=== PATIENT | male | born 1990 | race American Indian/Alaskan Native ===

== ENCOUNTER 2016-08-19 01:12 | Emergency (ER) | payer OTHER ==
[2016-08-19 01:31] VITALS: BP 126/75; PULSE 71; RESP 18; TEMP 97.7; O2SAT 99
--- NOTE | 2016-08-19 01:42 | C.PDOC ---
Time Seen by Provider: 08/19/16 01:34 Chief Complaint (Nursing): Abnormal Skin Integrity Past Medical History Vital Signs: Last Vital Signs Temp 97.7 F 08/19/16 01:29 Pulse 71 08/19/16 01:29 Resp 18 08/19/16 01:29 BP 126/75 08/19/16 01:29 Pulse Ox 99 08/19/16 01:29 - Social History Hx Tobacco Use: Yes Hx Alcohol Use: Yes Hx Substance Use: Yes - Immunization History Hx Tetanus Toxoid Vaccination: No Hx Influenza Vaccination: No Hx Pneumococcal Vaccination: No ED Course And Treatment O2 Sat by Pulse Oximetry: 99 Disposition Counseled Patient/Family Regarding: Studies Performed, Diagnosis, Need For Followup - Disposition Referrals: [facility] [Outside] Disposition: HOME/ ROUTINE Disposition Time: 01:37 Condition: FAIR Additional Instructions: Must follow up with workman's comp doctor. Instructions: Abrasion (ED) - Clinical Impression Clinical Impression: Abrasion
--- NOTE | 2016-08-19 01:44 | C.PDOC ---
History Of Present Illness Patient presents to ED requesting tetanus shot because of cut on forehead 1cm above ridge of nose caused by hand colby [employer] that happened at work. Patient denies loss of conscious, blurred vision, fever, chills, nausea/vomiting or diarrhea. Time Seen by Provider: 08/19/16 01:34 Chief Complaint (Nursing): Abnormal Skin Integrity History Per: Patient History/Exam Limitations: no limitations Onset/Duration Of Symptoms: Hrs Current Symptoms Are (Timing): Still Present Location Of Injury: Anterior: Head (Forehead cut caused by hand colby) Severity: Mild Pain Scale Rating Of: 3 Recent travel outside of the [place]: No Additional History Per: Patient Past Medical History Reviewed: Historical Data, Nursing Documentation, Vital Signs Vital Signs: Last Vital Signs Temp 97.7 F 08/19/16 01:29 Pulse 71 08/19/16 01:29 Resp 18 08/19/16 01:29 BP 126/75 08/19/16 01:29 Pulse Ox 99 08/19/16 01:52 Family History: States: No Known Family Hx - Social History Hx Tobacco Use: Yes Hx Alcohol Use: Yes Hx Substance Use: Yes - Immunization History Hx Tetanus Toxoid Vaccination: No Hx Influenza Vaccination: No Hx Pneumococcal Vaccination: No Review Of Systems Constitutional: Negative for: Fever, Chills Eyes: Negative for: Pain, Vision Change Skin: Positive for: Lesions (1 cm superficial abrasion) Neurological: Negative for: Change in Speech, Seizures, Dizziness Psych: Positive for: Anxiety Physical Exam - Physical Exam Appears: Non-toxic, No Acute Distress Skin: Warm, Other Head: Normacephalic, Abrasion (1cm superfacial abrasion above nasal ridge) Eye(s): bilateral: Normal Inspection, PERRL, EOMI Oral Mucosa: Moist Neurological/Psych: Oriented x3, Normal Speech, Normal Cognition Gait: Steady ED Course And Treatment O2 Sat by Pulse Oximetry: 99 Pulse Ox Interpretation: Normal Reevaluation Time: 01:51 Reassessment Condition: Improved Disposition Counseled Patient/Family Regarding: Studies Performed, Diagnosis, Need For Followup - Disposition Referrals: [facility] [Outside] Disposition: HOME/ ROUTINE Disposition Time: 01:53 Condition: FAIR Additional Instructions: Must follow up with workman's comp doctor. Instructions: Abrasion (ED) - Clinical Impression Clinical Impression: Abrasion
== END 2016-08-19 01:45 | disposition home or self-care (01) ==
LOC: C.ER 01:12
DX: S00.81XA Abrasion of other part of head, initial encounter (principal); W22.8XXA Striking against or struck by other objects, initial encounter; Y93.89 Activity, other specified; Y92.69 Other specified industrial and construction area as the place of occurrence of the external cause; Y99.0 Civilian activity done for income or pay; Z23 Encounter for immunization

== ENCOUNTER 2017-04-20 20:48 | Emergency (ER) | payer SELFPAY ==
[2017-04-20 21:03] VITALS: BP 124/72; PULSE 80; RESP 14; TEMP 98; O2SAT 99
--- NOTE | 2017-04-20 21:22 | C.PDOC ---
History Of Present Illness 26 year old male with Hx of gastritis presents to the ED for evaluation of sharp like epigastric abdominal pain that is on and off for the 4 days along with diarrhea. Patient reports he was previously told he had gastritis, is tolerating PO with no problem. Patient denies fever, chills, nausea, vomit, back pain, dysuria, hematuria. Time Seen by Provider: 04/20/17 21:13 Chief Complaint (Nursing): Abdominal Pain History Per: Patient History/Exam Limitations: no limitations Onset/Duration Of Symptoms: Days Current Symptoms Are (Timing): Still Present Severity: None Location Of Pain/Discomfort: Epigastric Radiation Of Pain To:: None Quality Of Discomfort: Sharp Associated Symptoms: Diarrhea. denies: Fever, Nausea, Vomiting, Loss Of Appetite, Urinary Symptoms Alleviating Factors: None Recent travel outside of the [place]: No Additional History Per: Patient Past Medical History Reviewed: Historical Data, Nursing Documentation, Vital Signs Vital Signs: Last Vital Signs Temp 98 F 04/20/17 21:00 Pulse 80 04/20/17 21:00 Resp 14 04/20/17 21:00 BP 124/72 04/20/17 21:00 Pulse Ox 99 04/20/17 22:02 - Medical History PMH: No Chronic Diseases Surgical History: No Surg Hx Family History: States: Unknown Family Hx - Social History Hx Tobacco Use: Yes Hx Alcohol Use: Yes Hx Substance Use: Yes - Immunization History Hx Tetanus Toxoid Vaccination: No Hx Influenza Vaccination: No Hx Pneumococcal Vaccination: No Review Of Systems Constitutional: Negative for: Fever, Chills Cardiovascular: Negative for: Chest Pain, Palpitations Respiratory: Negative for: Cough, Shortness of Breath Gastrointestinal: Positive for: Abdominal Pain, Diarrhea. Negative for: Nausea , Vomiting, Constipation Genitourinary: Negative for: Dysuria, Hematuria Musculoskeletal: Negative for: Back Pain Skin: Negative for: Rash Physical Exam - Physical Exam Appears: Non-toxic, No Acute Distress Skin: Normal Color, Warm, Dry Head: Atraumatic, Normacephalic Nose: No Discharge Oral Mucosa: Moist Neck: Normal ROM, Supple Chest: Symmetrical Cardiovascular: Rhythm Regular, No Murmur Respiratory: Normal Breath Sounds, No Rales, No Rhonchi, No Wheezing Gastrointestinal/Abdominal: Soft, No Tenderness, No Distention, No Rebound Extremity: Normal ROM, No Pedal Edema, No Calf Tenderness, No Swelling Neurological/Psych: Oriented x3, Normal Speech, Normal Cognition Gait: Steady ED Course And Treatment O2 Sat by Pulse Oximetry: 99 (On RA) Pulse Ox Interpretation: Normal Medical Decision Making Medical Decision Making: Impression : abdominal pain Plan: * Pepcid 40 mg PO Disposition - Disposition Referrals: [facility] at [facility] [Outside] Disposition: HOME/ ROUTINE Condition: STABLE Prescriptions: Ranitidine HCl 150 mg PO BID #20 tab Forms: [employer] (Maori) - Clinical Impression Clinical Impression: Gastritis, Abdominal pain - Scribe Statement The provider has reviewed the documentation as recorded by the Scribe Julio Christine All medical record entries made by the Scribe were at my direction and personally dictated by me. I have reviewed the chart and agree that the record accurately reflects my personal performance of the history, physical exam, medical decision making, and the department course for this patient. I have also personally directed, reviewed, and agree with the discharge instructions and disposition.
== END 2017-04-20 21:46 | disposition home or self-care (01) ==
LOC: C.ER 20:48
DX: K29.70 Gastritis, unspecified, without bleeding (principal); Z87.891 Personal history of nicotine dependence

== ENCOUNTER 2018-03-14 18:16 | Emergency (ER) | payer MEDICAID ==
[2018-03-14 18:28] VITALS: PULSE 83; RESP 18; O2SAT 98
[2018-03-14] MEDS ORDERED: PROPARACAINE/FLUORESCEIN SOD 100 DROP/5 ML BOTTLE OS STA (19:00)
[2018-03-14] MEDS ORDERED: Fluorescein 1 mg Ophthalmic Strip ONE (19:07)
[2018-03-14] MEDS ORDERED: Tetanus/Diphtheria Toxoids 0.5 ml Syringe IM ONE (20:27)
[2018-03-14] MEDS ORDERED: Tdap Vaccine 0.5 ml Vial (10-64 yrs) IM ONE (20:29)
--- NOTE | 2018-03-14 20:33 | C.PDOC ---
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 no visual changes. no discharge. last tdap unk. Time Seen by Provider: 03/14/18 18:59 Chief Complaint (Nursing): Foreign Body History Per: Patient History/Exam Limitations: no limitations Onset/Duration Of Symptoms: Hrs Current Symptoms Are (Timing): Still Present Injury To Eye?: No Severity: Mild Quality: Sharp Wears Contact Lens?: No Associated Symptoms: Pain, FB Sensation. denies: Decreased Vision, Discharge From Eye Past Medical History Reviewed: Historical Data, Nursing Documentation, Vital Signs Vital Signs: Last Vital Signs Temp 98.3 F 03/14/18 18:25 Pulse 83 03/14/18 18:25 Resp 18 03/14/18 18:25 BP 151/90 H 03/14/18 18:25 Pulse Ox 98 03/14/18 18:25 - Medical History PMH: No Chronic Diseases Family History: States: Unknown Family Hx - Social History Hx Tobacco Use: Yes Hx Alcohol Use: Yes Hx Substance Use: No - Immunization History Hx Tetanus Toxoid Vaccination: No Hx Influenza Vaccination: No Hx Pneumococcal Vaccination: No Review Of Systems Constitutional: Negative for: Fever, Chills Eyes: Positive for: Pain. Negative for: Vision Change, Eyelid Inflammation, Redness Skin: Negative for: Rash, Lesions Neurological: Negative for: Weakness, Numbness Physical Exam - Physical Exam Appears: Non-toxic, No Acute Distress Skin: Normal Color, Dry Head: Atraumatic, Normacephalic Eye(s): bilateral: PERRL, EOMI, right: Normal Inspection, left: Other (minute fb noted to right of iris. ) Neurological/Psych: Oriented x3, Normal Speech, Normal Cognition ED Course And Treatment O2 Sat by Pulse Oximetry: 98 Medical Decision Making Medical Decision Making: minute brownish fb removed with steril q-tip. no corneal fluorosecein uptake noted. d/chome with polytrim drops, f/u eye doctor. Disposition Counseled Patient/Family Regarding: Studies Performed, Diagnosis, Need For Followup, Rx Given - Disposition Referrals: Waqas Amato MD [Staff Provider] - Disposition: HOME/ ROUTINE Disposition Time: 20:30 Condition: IMPROVED Additional Instructions: Use drops as directed. Follow up with Dr Amato eye doctor in a few days.; Wear protective eye wear./ Prescriptions: Polymyxin/Trimethoprim Sulfate [Polytrim Ophth Soln] 1 drop OS BID #1 bottle Instructions: Foreign Body in Eye (DC) Forms: [facility] (Guyanese), General Discharge Instructions - Clinical Impression Clinical Impression: Foreign body in eyeball, left
[2018-03-14 20:38] VITALS: BP 138/88; TEMP 98
== END 2018-03-14 20:40 | disposition home or self-care (01) ==
LOC: C.ER 18:16
DX: T15.82XA Foreign body in other and multiple parts of external eye, left eye, initial encounter (principal); X58.XXXA Exposure to other specified factors, initial encounter

== ENCOUNTER 2018-08-30 16:08 | Emergency (ER) | payer MEDICAID ==
[2018-08-30 16:27] VITALS: BP 114/65; PULSE 78; RESP 16; TEMP 98.4; O2SAT 100
--- NOTE | 2018-08-30 18:11 | C.PDOC ---
History Of Present Illness Patient is a 27 year old male, pooja, who presents to the ED after walking home with no clothes on. Patient admitted to EMS that he did PCP. Patient walked out of ER prior to further history and physical exam. As per staff, patient walked out with steady gait and clothes. Time Seen by Provider: 08/30/18 16:28 Chief Complaint (Nursing): Medical Clearance History Per: EMS Onset/Duration Of Symptoms: Hrs Additional History Per: EMS Past Medical History Reviewed: Historical Data, Nursing Documentation, Vital Signs Vital Signs: Last Vital Signs Temp 98.4 F 08/30/18 16:24 Pulse 78 08/30/18 16:24 Resp 16 08/30/18 16:24 BP 114/65 08/30/18 16:24 Pulse Ox 100 08/30/18 16:24 - Medical History PMH: No Chronic Diseases Surgical History: No Surg Hx Family History: States: Unknown Family Hx - Social History Hx Tobacco Use: Yes Hx Alcohol Use: Yes Hx Substance Use: Yes - Immunization History Hx Tetanus Toxoid Vaccination: No Hx Influenza Vaccination: No Hx Pneumococcal Vaccination: No Review Of Systems Review Of Systems: ROS cannot be obtained secondary to pt's inabilty to answer questions. ED Course And Treatment O2 Sat by Pulse Oximetry: 100 (on RA) Pulse Ox Interpretation: Normal Disposition - Disposition Disposition: ELOPEMENT - ER ONLY Disposition Time: 16:30 Condition: UNKNOWN Forms: [facility] (Greenlandic) - Clinical Impression Clinical Impression: PCP abuse - Scribe Statement The provider has reviewed the documentation as recorded by the Rosalineibzabrina Carlson All medical record entries made by the Rosalineibzabrina were at my direction and personally dictated by me. I have reviewed the chart and agree that the record accurately reflects my personal performance of the history, physical exam, medical decision making, and the department course for this patient. I have also personally directed, reviewed, and agree with the discharge instructions and disposition.
== END 2018-08-30 16:28 | disposition left against medical advice (07) ==
LOC: C.ER 16:08
DX: F16.10 Hallucinogen abuse, uncomplicated (principal); Z72.0 Tobacco use